=== PATIENT | male | born 1990 | race Two or more races ===

== ENCOUNTER 2019-05-20 21:48 | Emergency (ER) | payer MEDICAID ==
[~2019-05-20] VITALS: Ht 172.7 cm; Wt 70.3 kg
--- NOTE | 2019-05-20 23:31 | NUR ---
Dr. Mane at bedside for MSE
[2019-05-20] MEDS ORDERED: IBUPROFEN 600 MG TABLET ONE (23:43)
[2019-05-20] MEDS ORDERED: IBUPROFEN 600 MG TABLET PO ONE (23:45)
--- NOTE | 2019-05-21 00:18 | NUR ---
XRAY AT BEDSIDE
--- NOTE | 2019-05-21 01:04 | NUR ---
Patient discharged to home in stable conditon. Written and verbal after care instructions given. Patient verbalizes understanding of instructions. Patient ambulating with steady gait
[2019-05-21 01:05] VITALS: BP 123/71
== END 2019-05-21 01:04 | disposition home or self-care (01) ==
LOC: ER 21:50
DX: M25.531 Pain in right wrist (principal)
CPT/HCPCS: 73110; 73130; A4663

== ENCOUNTER 2020-02-23 07:01 | Emergency (ER) | payer MEDICAID, OTHER ==
[~2020-02-23] VITALS: Ht 172.7 cm; Wt 77.1 kg
[2020-02-23] MEDS ORDERED: DEXAMETHASONE SOD PHOSPHATE 4 MG INJ IV ONE (07:15)
[2020-02-23] MEDS ORDERED: diphenhydrAMINE 50 MG/1 ML VIAL IV ONE (07:15)
[2020-02-23] MEDS ORDERED: KETOROLAC TROMETHAMINE 15 MG INJ IVP ONE (07:15)
[2020-02-23] MEDS ORDERED: METOCLOPRAMIDE HCL 10 MG/2 ML VIAL IV ONE (07:15)
[2020-02-23] MEDS ORDERED: IV NORMAL SALINE 1000 ML BAG IV ONE (07:15)
[2020-02-23] MEDS ORDERED: ACETAMINOPHEN 325 MG TABLET PO ONE (07:15)
[2020-02-23 07:36] LABS: BASOPHILS % (AUTO) 0.9 % (0.0-2.0); EOSINOPHILS # (AUTO) 0.2 K/uL (0.0-0.7); HEMATOCRIT 45.3 % (36.7-47.1); HEMOGLOBIN 15.7 g/dL (12.5-16.3); LYMPHOCYTES # (AUTO) 1.5 K/uL (20.0-40.0); LYMPHOCYTES % (AUTO) 38.3 % (20.5-51.5); MEAN CORPUSCULAR HEMOGLOBIN 31.4 uug (23.8-33.4); MEAN CORPUSCULAR HGB CONC 35 g/dL (32.5-36.3); MEAN CORPUSCULAR VOLUME 90.8 fL (73.0-96.2); MONOCYTES # (AUTO) 0.4 K/uL (2.0-10.0); MONOCYTES % (AUTO) 8.7 % (0.0-11.0); NEUTROPHILS # (AUTO) 1.9 K/uL (1.8-8.9); NEUTROPHILS % (AUTO) 47.1 % (38.5-71.5); PLATELET COUNT (AUTO) 218 K/uL (152-348); RED BLOOD CELL COUNT(AUTO) 4.99 MIL/uL (4.06-5.63)
[2020-02-23] MEDS ORDERED: ACETAMINOPHEN 325 MG TABLET ONE (07:36)
[2020-02-23] MEDS ORDERED: KETOROLAC TROMETHAMINE 15 MG INJ ONE (07:36)
[2020-02-23] MEDS ORDERED: METOCLOPRAMIDE HCL 10 MG/2 ML VIAL ONE (07:36)
[2020-02-23] MEDS ORDERED: DEXAMETHASONE SOD PHOSPHATE 10 MG INJ ONE (07:36)
[2020-02-23] MEDS ORDERED: diphenhydrAMINE 50 MG/1 ML VIAL ONE (07:36)
[2020-02-23 07:41] LABS: CREATININE 1.2 mg/dL (0.6-1.3); POTASSIUM 4.7 mmol/L (3.5-5.1)
[2020-02-23 08:25] LABS: *AMPHETAMINE, URINE NEGATIVE (NEGATIVE); *CANNABINOID, URINE POSITIVE (NEGATIVE); *COCCAINE, URINE NEGATIVE (NEGATIVE); *OPIATE, URINE NEGATIVE (NEGATIVE); *PHENCYCLIDINE SCREEN,URINE NEGATIVE (NEGATIVE)
--- NOTE | 2020-02-23 08:41 | NUR ---
Patient discharged to home in stable condition. Written and verbal after care instructions given. Patient verbalizes understanding of instructions. Stressed follow up or return to ER for worsening s/s.
== END 2020-02-23 08:42 | disposition home or self-care (01) ==
LOC: ER 07:05
DX: R51.9 Headache, unspecified (principal); Z86.69 Personal history of other diseases of the nervous system and sense organs
CPT/HCPCS: 36415; 80048; 80307; 85025; 96374; 96375; 99284; J1100; J1200; J1885; J2765; A4663